=== PATIENT | male | born 1960 | race African-American/Black ===

== ENCOUNTER 2016-11-01 21:01 | Emergency (ER) | payer BC, OTHER ==
[~2016-11-01] VITALS: Ht 165.1 cm; Wt 60.5 kg
[2016-11-01 21:12] VITALS: BP 131/85
== END 2016-11-01 22:33 | disposition home or self-care (01) ==
LOC: ED 22:27
DX: H93.11 Tinnitus, right ear (principal)
CPT/HCPCS: 99283